=== PATIENT | male | born 1980 | race Caucasian/White ===

== ENCOUNTER 2017-10-24 11:44 | Emergency (ER) | payer SELFPAY ==
[~2017-10-24] VITALS: Ht 170.2 cm; Wt 66.1 kg
[2017-10-24 11:47] VITALS: BP 173/100; PULSE 56; TEMP 98.1
[2017-10-24] MEDS ORDERED: CEPHALEXIN500 M1 PO (12:47)
== END 2017-10-24 13:16 | disposition home or self-care (01) ==
LOC: COL.ER 11:44
DX: S60.352A Superficial foreign body of left thumb, initial encounter (principal); F17.210 Nicotine dependence, cigarettes, uncomplicated; Z23 Encounter for immunization; W45.0XXA Nail entering through skin, initial encounter; Y92.009 Unspecified place in unspecified non-institutional (private) residence as the place of occurrence of the external cause